=== PATIENT | female | born 1940 | race Caucasian/White ===

== ENCOUNTER 2016-11-21 10:24 | Emergency (ER) | payer MEDICARE ==
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
[2016-11-21 11:47] VITALS: BP 178/74
== END 2016-11-21 11:48 | disposition home or self-care (01) ==
LOC: ER 10:24
DX: S20.212A Contusion of left front wall of thorax, initial encounter (principal); S40.012A Contusion of left shoulder, initial encounter; W01.0XXA Fall on same level from slipping, tripping and stumbling without subsequent striking against object, initial encounter; Y92.89 Other specified places as the place of occurrence of the external cause